=== PATIENT | female | born 1940 | race Caucasian/White ===

== ENCOUNTER 2016-05-26 12:18 | Outpatient (CLI) | payer MEDICARE, OTHER ==
[~2016-05-26 12:18] MED LIST: AMOX-427 PO; CLOT15CR4 TP; Folic Acid PO; MINE454C11 TP
== END 2016-05-26 23:59 | disposition home or self-care (01) ==
LOC: RAD 12:18
DX: G54.2 Cervical root disorders, not elsewhere classified (principal); M47.9 Spondylosis, unspecified
CPT/HCPCS: 72040-TC